=== PATIENT | male | born 1965 | race Hispanic/Latino ===

== ENCOUNTER 2020-12-03 22:48 | Emergency (ER) | payer BC ==
[2020-12-04 01:33] LABS: Urine Blood Trace-intact (Negative); Urine Glucose Negative (Negative); Urine Protein Negative (Negative); Urine Specific Gravity 1.025 (1.005-1.030)
[2020-12-04 01:36] LABS: Absolute Lymphocytes (CBC) 2.8 K/uL (0.7-4.9); Basophils % 0.7 % (0-1.3); Hematocrit 42.4 % (39.6-49.0); MPV 7.6 fL (7.6-11.3); RBC Red Blood Cell Count 4.34 M/uL (4.33-5.43)
[2020-12-04] MEDS ORDERED: NA CHLORIDE 0.9% 1,000 ML ONE (01:38)
[2020-12-04 01:53] LABS: Potassium 4.3 mmol/L (3.5-5.1)
--- NOTE | 2020-12-04 03:08 | ER ---
Nurse's Notes [facility] Name: Alexis Hart Age: 55 yrs Sex: Male : 1965 Arrival Date: 12/03/2020 Time: 22:50 Bed 20 Private MD: Diagnosis: Mildly obstructing 4 mm proximal left ureteral calculus Presentation: 12/03 23:56 Chief complaint: Patient states: left sided flank pain that has been there for a week, em pain came back today at 5 PM, reports N/V and subjective fever, denies pain when urinating. Coronavirus screen: Client denies travel out of the [place] in the last 14 days. Ebola Screen: Patient negative for fever greater than or equal to 101.5 degrees Fahrenheit, and additional compatible Ebola Virus Disease symptoms Patient denies exposure to infectious person. Patient denies travel to an Ebola-affected area in the 21 days before illness onset. No symptoms or risks identified at this time. Initial Sepsis Screen: Does the patient meet any 2 criteria? No. Patient's initial sepsis screen is negative. Does the patient have a suspected source of infection? No. Patient's initial sepsis screen is negative. Risk Assessment: Do you want to hurt yourself or someone else? Patient reports no desire to harm self or others. Onset of symptoms was December 03, 2020. 23:56 Method Of Arrival: Ambulatory em 23:56 Acuity: AMANDA 3 em Historical: - Allergies: 12/04 00:00 No Known Allergies; em - Home Meds: 00:00 lisinopril 5 mg Oral tab 1 tab once daily [Active]; omeprazole 40 mg Oral cpDR 1 cap em once daily [Active]; - PMHx: 00:00 Hypertension; em - PSHx: 00:00 None; em - Immunization history:: Adult Immunizations up to date, Client reports receiving the 1st dose of the Covid vaccine, November 15, 2020. - Social history:: Social history: Smoking status: Patient denies any tobacco usage or history of. Screenin:15 Abuse screen: Denies threats or abuse. Nutritional screening: No deficits noted. ea Tuberculosis screening: No symptoms or risk factors identified. Fall Risk None identified. Assessment: 01:43 General: Appears in no apparent distress. Behavior is calm, cooperative, appropriate ea for age. Pain: Denies pain. Neuro: Level of Consciousness is awake, alert, obeys commands, Oriented to person, place, time. Cardiovascular: Patient's skin is warm and dry. Respiratory: Airway is patent Respiratory effort is even, unlabored, Respiratory pattern is regular, symmetrical. Derm: Skin is pink, warm \T\ dry. 03:02 Reassessment: Patient and/or family updated on plan of care and expected duration. Pain ea level reassessed. Patient is alert, oriented x 3, equal unlabored respirations, skin warm/dry/pink. Awaiting on CT results. 03:23 Reassessment: Patient and/or family updated on plan of care and expected duration. Pain ea level reassessed. Patient is alert, oriented x 3, equal unlabored respirations, skin warm/dry/pink. Discharge instruction given to patient verbalized the understanding of instruction. Pt left ED ambulatory tolerating well. Vital Signs: 12/03 23:56 BP 126 / 96; Pulse 78; Resp 18; Temp 98.0; Pulse Ox 100% on R/A; Weight 97.52 kg; em Height 5 ft. 10 in. (177.80 cm); Pain 0/10; 12/04 03:02 BP 131 / 86; Pulse 74; Resp 18; Pulse Ox 99% ; ea 12/03 23:56 Body Mass Index 30.85 (97.52 kg, 177.80 cm) em ED Course: 12/03 22:50 Patient arrived in ED. am4 23:58 Triage completed. em 12/04 00:00 Arm band placed on. em 01:06 Tyson Morris MD is Attending Physician. pkl 01:15 Latanya Singh, NILO is Primary Nurse. ea 01:16 Patient has correct armband on for positive identification. Placed in gown. Bed in low ea position. Call light in reach. Side rails up X2. 01:44 Inserted saline lock: 20 gauge in right antecubital area, using aseptic technique. ea 01:53 CT Stone Protocol In Process Unspecified. EDMS 03:04 Kaiser Lnaza MD is Referral Physician. pkl 03:22 No provider procedures requiring assistance completed. IV discontinued, intact, ea bleeding controlled, No redness/swelling at site. Pressure dressing applied. Administered Medications: 01:44 Drug: NS 0.9% 1000 ml Route: IV; Rate: 1000 ml; Site: right antecubital; ea 03:22 Drug: [place] (HYDROcodone-acetaminophen) (7.5 mg-325 mg) 1 tabs Route: PO; ea 03:22 Follow up: Response: No adverse reaction ea Outcome: 03:07 Discharge ordered by . matthew 03:23 Discharged to home ambulatory, with family. ea 03:23 Condition: stable 03:23 Discharge instructions given to patient, Instructed on discharge instructions, follow up and referral plans. medication usage, Demonstrated understanding of instructions, follow-up care, medications, Prescriptions given X 2. 03:24 Patient left the ED. ea Signatures: Dispatcher [employer] EDTyson Kim MD MD pkl Munoz, Edgar RN RN Latanya Smith RN RN Estefanía Gay Corrections: (The following items were deleted from the chart) 01:08 04 23:56 Chief complaint: Patient states: flank pain that has been there for a week, em pain came back today at 5 PM, reports N/V and subjective fever, denies pain when urinating em
--- NOTE | 2020-12-04 03:08 | EDPHYS ---
Physician Documentation [facility] Name: Alexis Hart Age: 55 yrs Sex: Male : 1965 Arrival Date: 12/03/2020 Time: 22:50 Bed 20 Private MD: ED Physician Tyson Morris HPI: 12/04 01:16 This 55 yrs old Male presents to ER via Ambulatory with complaints of Flank pkl Pain. 01:16 The patient complains of pain in the left flank. Location: left groin. Onset: The pkl symptoms/episode began/occurred today, 5 hour(s) ago, 1 week(s) ago, and became worse. Associated signs and symptoms: The patient has no apparent associated signs or symptoms. Historical: - Allergies: 00:00 No Known Allergies; em - Home Meds: 00:00 lisinopril 5 mg Oral tab 1 tab once daily [Active]; omeprazole 40 mg Oral cpDR 1 cap em once daily [Active]; - PMHx: 00:00 Hypertension; em - PSHx: 00:00 None; em - Immunization history:: Adult Immunizations up to date, Client reports receiving the 1st dose of the Covid vaccine, November 15, 2020. - Social history:: Social history: Smoking status: Patient denies any tobacco usage or history of. ROS: 01:16 Eyes: Negative for injury, pain, redness, and discharge, ENT: Negative for injury, pkl pain, and discharge, Neck: Negative for injury, pain, and swelling, Cardiovascular: Negative for chest pain, palpitations, and edema, Respiratory: Negative for shortness of breath, cough, wheezing, and pleuritic chest pain, Abdomen/GI: Negative for abdominal pain, nausea, vomiting, diarrhea, and constipation. 01:16 Back: Positive for flank pain, on the left. 01:16 : Negative for urinary symptoms. 01:16 MS/extremity: Negative for acute changes. 01:16 Skin: Negative for rash. 01:16 Neuro: Negative for altered mental status. Exam: 01:16 Head/Face: Normocephalic, atraumatic. Eyes: Pupils equal round and reactive to light, pkl extra-ocular motions intact. Lids and lashes normal. Conjunctiva and sclera are non-icteric and not injected. Cornea within normal limits. Periorbital areas with no swelling, redness, or edema. ENT: Nares patent. No nasal discharge, no septal abnormalities noted. Tympanic membranes are normal and external auditory canals are clear. Oropharynx with no redness, swelling, or masses, exudates, or evidence of obstruction, uvula midline. Mucous membranes moist. Neck: Trachea midline, no thyromegaly or masses palpated, and no cervical lymphadenopathy. Supple, full range of motion without nuchal rigidity, or vertebral point tenderness. No Meningismus. Chest/axilla: Normal chest wall appearance and motion. Nontender with no deformity. No lesions are appreciated. Cardiovascular: Regular rate and rhythm with a normal S1 and S2. No gallops, murmurs, or rubs. Normal PMI, no JVD. No pulse deficits. Respiratory: Lungs have equal breath sounds bilaterally, clear to auscultation and percussion. No rales, rhonchi or wheezes noted. No increased work of breathing, no retractions or nasal flaring. Abdomen/GI: Soft, non-tender, with normal bowel sounds. No distension or tympany. No guarding or rebound. No evidence of tenderness throughout. 01:16 Back: pain, is absent, of the left flank. 01:16 : Exam negative for acute changes. 01:16 Musculoskeletal/extremity: Exam is negative for acute changes. 01:16 Skin: Exam negative for rash. 01:16 Neuro: Orientation: is normal, Mentation: is normal, Cranial nerves: grossly normal, Motor: is normal. Vital Signs: 12/03 23:56 BP 126 / 96; Pulse 78; Resp 18; Temp 98.0; Pulse Ox 100% on R/A; Weight 97.52 kg; em Height 5 ft. 10 in. (177.80 cm); Pain 0/10; 12/04 03:02 BP 131 / 86; Pulse 74; Resp 18; Pulse Ox 99% ; ea 12/03 23:56 Body Mass Index 30.85 (97.52 kg, 177.80 cm) em MDM: 01:06 Patient medically screened. pkl 03:01 Data reviewed: vital signs, nurses notes, lab test result(s), radiologic studies, plain pkl films. ED course: Discussed lab and CT Scan results with patient. Advised lot of fluids. Follow up with Dr. Lanza ( Urologist ) in 2 to 3 days. patient understood instructions. 12/04 01:15 Order name: CBC with Diff; Complete Time: 02:59 pkl 12/04 01:15 Order name: Chem 7; Complete Time: 02:59 pkl 12/04 01:15 Order name: CT Stone Protocol pkl 12/04 01:32 Order name: Urine Dipstick-Ancillary; Complete Time: 02:59 EDMS Administered Medications: 01:44 Drug: NS 0.9% 1000 ml Route: IV; Rate: 1000 ml; Site: right antecubital; ea 03:22 Drug: [place] (HYDROcodone-acetaminophen) (7.5 mg-325 mg) 1 tabs Route: PO; ea 03:22 Follow up: Response: No adverse reaction ea Disposition: 12/04/20 03:07 Discharged to Home. Impression: Mildly obstructing 4 mm proximal left ureteral calculus. - Condition is Stable. - Prescriptions for Ultram 50 mg Oral Tablet - take 1 tablet by ORAL route every 6 hours As needed; 12 tablet. Flomax 0.4 mg Oral Capsule, Sust. Release 24 hr - take 1 capsule by ORAL route once daily 1/2 hour following the same meal each day; 30 capsule. - Medication Reconciliation Form, Thank You Letter, Antibiotic Education, Prescription Opioid Use form. - Follow up: Kaiser Lanza MD; When: 2 - 3 days; Reason: Re-evaluation by your physician. - Problem is new. - Symptoms have improved. Signatures: Dispatcher [employer] EDTyson Kim MD MD pkl Munoz, Edgar, Latanya Chatman RN, RN RN ea Corrections: (The following items were deleted from the chart) 03:24 03:07 12/04/2020 03:07 Discharged to Home. Impression: Mildly obstructing 4 mm proximal ea left ureteral calculus. Condition is Stable. Forms are Medication Reconciliation Form, Thank You Letter, Antibiotic Education, Prescription Opioid Use. Follow up: Kaiser Lanza; When: 2 - 3 days; Reason: Re-evaluation by your physician. Problem is new. Symptoms have improved. pkl
[2020-12-04] MEDS ORDERED: HYDROCODONE/APAP 7.5/325 MG TAB ONE (03:38)
--- NOTE | 2020-12-04 11:45 | RAD REPORT ---
EXAM DESCRIPTION: CT - Stone Protocol - 12/04/2020 2:34 am CLINICAL HISTORY: Left flank pain COMPARISON: None. TECHNIQUE: CT ABDOMEN PELVIS WITHOUT IV CONTRAST on 12/04/2020 1:15 AM CDT This exam was performed according to our departmental dose-optimization program, which includes autom ated exposure control, adjustment of the mA and/or kV according to patient size and/or use of iterati ve reconstruction technique. FINDINGS: Lower lungs are clear. Abdomen: Liver is fatty in attenuation. There is no biliary dilatation. Gallbladder is normally diste nded. The pancreas and spleen are normal in appearance. Adrenal glands are normal. Right kidney conta ins a 1 mm mid to lower pole calculus without hydronephrosis. There is mild left hydronephrosis secon valentin to a 4 mm proximal ureteral calculus. Abdominal aorta is normal in course and caliber without aneurysm. There is no free air. There is no r etroperitoneal adenopathy. Pelvis: There is no bowel obstruction. Urinary bladder is unremarkable. There is no free fluid. Appen salvador is normal. Skeleton: There are no acute osseous findings. No suspicious bony lesions. IMPRESSION: Mildly obstructing 4 mm proximal left ureteral calculus. Electronically signed by: Asaf Meza MD 12/04/2020 2:05 AM CDT Due to temporary technical issues with the PACS/Fluency reporting system, reports are being signed by the in house radiologist without review as a courtesy to ensure prompt reporting. The interpreting r adiologist is fully responsible for the content of the report.
[2020-12-04 18:03] VITALS: TEMP 98
[2020-12-04 18:06] VITALS: BP 131/86; O2SAT 99
== END 2020-12-04 03:24 | disposition home or self-care (01) ==
LOC: ER 22:48
DX: N20.1 Calculus of ureter (principal); I10 Essential (primary) hypertension
CPT/HCPCS: 85025; 80048; 36415; 81003; 76377; 74176; 99284; J7030

== ENCOUNTER 2020-12-30 06:18 | Emergency (ER) | payer BC ==
[2020-12-30 07:00] LABS: Absolute Lymphocytes (CBC) 1.6 K/uL (0.7-4.9); Basophils % 0.3 % (0-1.3); Hematocrit 42.9 % (39.6-49.0); MPV 7.9 fL (7.6-11.3); RBC Red Blood Cell Count 4.43 M/uL (4.33-5.43)
--- NOTE | 2020-12-30 07:04 | RAD REPORT ---
EXAM DESCRIPTION: CT - Stone Protocol - 12/30/2020 6:53 am CLINICAL HISTORY: FLANK PAIN, left side with chills and vomiting, history of kidney stones COMPARISON: Stone Protocol dated 12/04/2020 TECHNIQUE: Axial 3 mm thick images were obtained without oral or IV contrast. The [id number] span s the entirety of the system including uppermost abdomen and lung bases. All CT scans are performed using dose optimization technique as appropriate and may include automated exposure control or mA/KV adjustment according to patient size. FINDINGS: Moderate dilatation of the left renal pelvis and proximal most ureter noted secondary to a 7 x 5 mm stone. When viewed from a KUB projection, the stone superimposes on the left lateral margin L4 body. There is stranding in the perinephric fat and along the course of the left ureter to the le nel of the pelvic inlet. No additional renal or ureteral calculi seen. No right-sided hydronephrosis or acute finding. No suspicious renal masses. Isodense masses and pyelonephritis are not excluded on a stone protocol CT scan. No significant adrenal finding. No urinary bladder suspicious finding. Imaged portions of the liver, spleen and pancreas show no suspicious findings on non-contrast imaging . The liver does show diffuse fatty infiltration. No gallbladder or biliary tree abnormality. No suspicious bowel findings. No hernia, mass or bulky lymphadenopathy noted. No free air, free fluid or inflammatory stranding. No significant bony abnormality. IMPRESSION: Moderate dilatation of the left renal pelvis and proximal left ureter secondary to a 7 x 5 mm obstructing calculus. When viewed on a KUB projection, the stone is superimposed on the left la teral margin L4 body. Left perinephric stranding and stranding adjacent to the proximal left ureter noted. Isodense masses and pyelonephritis are not excluded on stone protocol technique. Remainder the study is without acute or significant finding. Nonacute findings detailed in the body o f the report.
[2020-12-30 07:09] LABS: Potassium 3.8 mmol/L (3.5-5.1)
[2020-12-30 07:15] LABS: Urine Blood Trace-intact (Negative); Urine Glucose Negative (Negative); Urine Protein Negative (Negative); Urine Specific Gravity >=1.030 (1.005-1.030)
[2020-12-30] MEDS ORDERED: MORPHINE 4 MG/ML SYR ONE (07:26)
[2020-12-30] MEDS ORDERED: ONDANSETRON 4 MG/2 ML VIAL ONE (07:26)
[2020-12-30 07:31] LABS: Urine Bacteria NONE SEEN /HPF (NONE SEEN)
[2020-12-30] MEDS ORDERED: TAMSULOSIN 0.4 MG SR CAP ONE (07:40)
[2020-12-30] MEDS ORDERED: MAGNESIUM SULFATE 1 gm IVPB 1 GM/100 ML BAG IV ONE (07:41)
[2020-12-30 08:01] LABS: Urine Blood 3+ (Negative); Urine Glucose Negative (Negative); Urine Protein Negative (Negative); Urine pH 5.5 (5.0-7.0)
--- NOTE | 2020-12-30 09:22 | EDPHYS ---
Physician Documentation [facility] Name: Alexis Hart Age: 55 yrs Sex: Male : 1965 Arrival Date: 12/30/2020 Time: 06:22 Bed 15 Private MD: [place] Physician Mono Orosco HPI: 12/30 07:03 This 55 yrs old Male presents to ER via Ambulatory with complaints of Possible rn Kidney Stone. 07:03 The patient complains of pain in the left mid back. The pain radiates to the abdomen. rn Onset: The symptoms/episode began/occurred yesterday. Modifying factors: The symptoms are alleviated by nothing. the symptoms are aggravated by nothing. Associated signs and symptoms: Pertinent positives: nausea, Pertinent negatives: fever. Severity of pain: At its worst the pain was moderate in the emergency department the pain is unchanged. The patient has experienced a previous episode. The patient has not recently seen a physician. Historical: - Allergies: 06:39 No Known Allergies; bb - Home Meds: 06:39 lisinopril 5 mg Oral tab 1 tab once daily [Active]; omeprazole 40 mg Oral cpDR 1 cap bb once daily [Active]; - PMHx: 06:39 Hypertension; Kidney stones; bb - Immunization history:: Adult Immunizations up to date, Client reports receiving the 2nd dose of the Covid vaccine. - Social history:: Smoking status: unknown. - Family history:: not pertinent. - Hospitalizations: : No recent hospitalization is reported. ROS: 07:03 Constitutional: Negative for fever, chills, and weight loss, Eyes: Negative for injury, rn pain, redness, and discharge, Neck: Negative for injury, pain, and swelling, Cardiovascular: Negative for chest pain, palpitations, and edema, Respiratory: Negative for shortness of breath, cough, wheezing, and pleuritic chest pain, Abdomen/GI: Negative for abdominal pain, nausea, vomiting, diarrhea, and constipation, Back: + left flank pain : Negative for injury, bleeding, discharge, and swelling, MS/Extremity: Negative for injury and deformity, Skin: Negative for injury, rash, and discoloration, Neuro: Negative for headache, weakness, numbness, tingling, and seizure. Exam: 07:03 Constitutional: This is a well developed, well nourished patient who is awake, alert, rn and in no acute distress. Head/Face: Normocephalic, atraumatic. Cardiovascular: Regular rate and rhythm. No pulse deficits. Respiratory: No increased work of breathing, no retractions or nasal flaring. Abdomen/GI: Soft, non-tender Back: No spinal tenderness. No costovertebral tenderness. Full range of motion. Skin: Warm, dry MS/ Extremity: Pulses equal, no cyanosis. Neuro: Awake and alert, GCS 15 Vital Signs: 06:36 BP 151 / 90; Pulse 81; Resp 16 S; Temp 98.9(O); Pulse Ox 97% on R/A; Weight 104.33 kg bb (R); Height 5 ft. 8 in. (172.72 cm) (R); Pain 01/05; 09:00 BP 143 / 69; Pulse 80; Resp 18; Pulse Ox 100% on R/A; Pain /10; em 06:36 Body Mass Index 34.97 (104.33 kg, 172.72 cm) bb MDM: 06:26 Patient medically screened. rn 07:32 ED course: Pain markedly improved from 01/05 to 09/07. . rn 08:09 Patient medically screened. [facility] 09:19 Differential diagnosis: nephrolithiasis, UTI. Data reviewed: vital signs, nurses notes, [facility] lab test result(s), radiologic studies, CT scan. Data interpreted: quality assurance monitor final: rate is 80 beats/min, rhythm is regular, Pulse oximetry: on room air is 100 %. Test interpretation: by ED physician or midlevel provider: plain radiologic studies. Counseling: I had a detailed discussion with the patient and/or guardian regarding: the historical points, exam findings, and any diagnostic results supporting the discharge/admit diagnosis, lab results, radiology results. 12/30 06:36 Order name: Basic Metabolic Panel rn 12/30 06:36 Order name: CBC with Diff rn 12/30 06:36 Order name: Urine Culture rn 12/30 06:36 Order name: Urine Microscopic Only; Complete Time: 08:10 rn 12/30 06:37 Order name: Basic Metabolic Panel; Complete Time: 08:10 EDAR 12/30 06:37 Order name: CBC with Automated Diff; Complete Time: 07:07 EDAR 12/30 06:25 Order name: CT Stone Protocol; Complete Time: 07:07 rn 05/04 06:36 Order name: IV Saline Lock; Complete Time: 06:55 rn 12/30 07:15 Order name: Urine Dipstick-Ancillary; Complete Time: 08:10 EDMS 12/30 08:01 Order name: Urine Dipstick-Ancillary; Complete Time: 08:10 EDMS 12/30 06:36 Order name: Labs collected and sent; Complete Time: 06:55 rn 12/30 06:36 Order name: Urine Dipstick-Ancillary (obtain specimen); Complete Time: 07:17 rn Administered Medications: 07:10 Drug: Zofran (Ondansetron) 4 mg Route: IVP; Site: left antecubital; em 07:46 Follow up: Response: No adverse reaction em 07:12 Drug: morphine 4 mg Route: IVP; Site: left antecubital; em 07:46 Follow up: Response: No adverse reaction; Marked relief of symptoms; Pain is decreased; em RASS: Alert and Calm (0) 07:27 Drug: Magnesium Sulfate 1 grams Route: IVPB; Infused Over: 1 hrs; Site: left em antecubital; 07:27 Drug: Flomax (tamsulosin) 0.4 mg Route: PO; em 07:47 Follow up: Response: No adverse reaction em Disposition: 12/30/20 09:22 Discharged to Home. Impression: Hydronephrosis with renal and ureteral calculous obstruction. - Condition is Stable. - Discharge Instructions: Kidney Stones, Kidney Stones, [id number], Hydronephrosis. - Prescriptions for Tylenol- Codeine #3 300-30 mg Oral Tablet - take 2 tablet by ORAL route every 4-6 hours As needed; 30 tablet. Zofran 4 mg Oral Tablet - take 1 tablet by ORAL route every 12 hours As needed; 20 tablet. Flomax 0.4 mg Oral Capsule, Sust. Release 24 hr - take 1 capsule by ORAL route once daily 1/2 hour following the same meal each day; 30 capsule. Cipro 500 mg Oral Tablet - take 1 tablet by ORAL route every 12 hours for 7 days; 14 tablet. ketorolac 10 mg Oral tablet - take 1 tablet by ORAL route every 6 hours not to exceed 40 mg in 24hrs; 15 tablet. - Medication Reconciliation Form, Thank You Letter, Antibiotic Education, Prescription Opioid Use, Work release form form. - Follow up: Private Physician; When: 2 - 3 days; Reason: Recheck today's complaints, Continuance of care, Re-evaluation by your physician. Follow up: Kaiser Lanza MD; When: 2 - 3 days; Reason: Recheck today's complaints, Continuance of care, Re-evaluation by your physician. - Problem is new. - Symptoms have improved. Signatures: Dispatcher [employer] EDMono Klein MD MD cha Munoz, Edgar, RN RN em Parvin Marinelli RN RN bb Nieto, Roman, MD MD reclamation furnace operator: (The following items were deleted from the chart) 09:39 09:22 12/30/2020 09:22 Discharged to Home. Impression: Hydronephrosis with renal and em ureteral calculous obstruction. Condition is Stable. Forms are Medication Reconciliation Form, Thank You Letter, Antibiotic Education, Prescription Opioid Use. Follow up: Private Physician; When: 2 - 3 days; Reason: Recheck today's complaints, Continuance of care, Re-evaluation by your physician. Follow up: Kaiser Lanza; When: 2 - 3 days; Reason: Recheck today's complaints, Continuance of care, Re-evaluation by your physician. Problem is new. Symptoms have improved. geovanni
--- NOTE | 2020-12-30 09:22 | ER ---
Nurse's Notes [facility] Name: Alexis Hart Age: 55 yrs Sex: Male : 1965 Arrival Date: 12/30/2020 Time: 06:22 Bed 15 Private MD: Diagnosis: Hydronephrosis with renal and ureteral calculous obstruction Presentation: 12/30 06:36 Chief complaint: Patient states: he has history of kidney stones and is having similar bb symptoms starting last night with left flank pain, chills, vomiting. Coronavirus screen: At this time, the client does not indicate any symptoms associated with coronavirus-19. Ebola Screen: No symptoms or risks identified at this time. Initial Sepsis Screen: Does the patient meet any 2 criteria? No. Patient's initial sepsis screen is negative. Does the patient have a suspected source of infection? No. Patient's initial sepsis screen is negative. Risk Assessment: Do you want to hurt yourself or someone else? Patient reports no desire to harm self or others. Onset of symptoms was December 29, 2020. 06:36 Method Of Arrival: Ambulatory bb 06:36 Acuity: AMANDA 3 bb Historical: - Allergies: 06:39 No Known Allergies; bb - Home Meds: 06:39 lisinopril 5 mg Oral tab 1 tab once daily [Active]; omeprazole 40 mg Oral cpDR 1 cap bb once daily [Active]; - PMHx: 06:39 Hypertension; Kidney stones; bb - Immunization history:: Adult Immunizations up to date, Client reports receiving the 2nd dose of the Covid vaccine. - Social history:: Smoking status: unknown. - Family history:: not pertinent. - Hospitalizations: : No recent hospitalization is reported. Screenin:08 Abuse screen: Denies threats or abuse. Nutritional screening: No deficits noted. jv1 Tuberculosis screening: No symptoms or risk factors identified. Fall Risk None identified. Assessment: 06:45 General: Appears in no apparent distress. comfortable, well groomed, well developed, jv1 Behavior is calm, cooperative, appropriate for age. Pain: Complains of pain in left flank Pain radiates to abdomen Pain currently is 8 out of 10 on a pain scale. Quality of pain is described as aching. Neuro:. Cardiovascular: Denies chest pain, Heart tones S1 S2. Respiratory: Airway is patent Respiratory effort is even, unlabored. GI: Abdomen is round non-distended, Bowel sounds present X 4 quads. Abd is soft Abdomen is tender to palpation in left lower quadrant. : No signs and/or symptoms were reported regarding the genitourinary system. EENT: No signs and/or symptoms were reported regarding the EENT system. Derm: No signs and/or symptoms reported regarding the dermatologic system. Musculoskeletal: No signs and/or symptoms reported regarding the musculoskeletal system. 07:46 Reassessment: Patient appears in no apparent distress at this time. Patient and/or em family updated on plan of care and expected duration. Pain level reassessed. Patient is alert, oriented x 3, equal unlabored respirations, skin warm/dry/pink. rates pain 1/10 Patient states feeling better. 09:00 Reassessment: Patient appears in no apparent distress at this time. Patient and/or em family updated on plan of care and expected duration. Pain level reassessed. Patient is alert, oriented x 3, equal unlabored respirations, skin warm/dry/pink. Vital Signs: 06:36 BP 151 / 90; Pulse 81; Resp 16 S; Temp 98.9(O); Pulse Ox 97% on R/A; Weight 104.33 kg bb (R); Height 5 ft. 8 in. (172.72 cm) (R); Pain 5/10; 09:00 BP 143 / 69; Pulse 80; Resp 18; Pulse Ox 100% on R/A; Pain 1/10; em 06:36 Body Mass Index 34.97 (104.33 kg, 172.72 cm) ED Course: 06:22 Patient arrived in ED. bp1 06:26 Raul Mendoza MD is Attending Physician. rn 06:39 Triage completed. bb 06:39 Arm band placed on Patient placed in an exam room, on a stretcher, on pulse oximetry. bb Family accompanied patient. 06:52 CT Stone Protocol In Process Unspecified. EDMS 07:08 Patient has correct armband on for positive identification. Bed in low position. Side jv1 rails up X 1. 07:16 Cordell Wheeler, NILO is Primary Nurse. em 08:08 Attending Physician role handed off by Raul Mendoza MD geovanni 08:08 Mono Orosco MD is Attending Physician. geovanni 09:21 Kaiser Lanza MD is Referral Physician. [facility] 09:34 No provider procedures requiring assistance completed. IV discontinued, intact, em bleeding controlled, No redness/swelling at site. Pressure dressing applied. Administered Medications: 07:10 Drug: Zofran (Ondansetron) 4 mg Route: IVP; Site: left antecubital; em 07:46 Follow up: Response: No adverse reaction em 07:12 Drug: morphine 4 mg Route: IVP; Site: left antecubital; em 07:46 Follow up: Response: No adverse reaction; Marked relief of symptoms; Pain is decreased; em RASS: Alert and Calm (0) 07:27 Drug: Magnesium Sulfate 1 grams Route: IVPB; Infused Over: 1 hrs; Site: left em antecubital; 07:27 Drug: Flomax (tamsulosin) 0.4 mg Route: PO; em 07:47 Follow up: Response: No adverse reaction em Outcome: 09:22 Discharge ordered by . [facility] 09:34 Discharged to home ambulatory, with family. em 09:34 Condition: good 09:34 Discharge instructions given to patient, family, Instructed on discharge instructions, follow up and referral plans. Demonstrated understanding of instructions, follow-up care, medications, Prescriptions given X 5 09:39 Patient left the ED. em Signatures: Dispatcher [employer] Mono Salas MD MD cha Munoz, Edgar, RN RN Parvin Rosario RN RN Raul Ramon MD MD rn Vicente, Joyce, RN RN jMable Li [facility]
[2020-12-30 09:45] VITALS: TEMP 98.9
[2020-12-30 09:47] VITALS: BP 143/69; O2SAT 100
== END 2020-12-30 09:39 | disposition home or self-care (01) ==
LOC: ER 06:18
DX: N13.2 Hydronephrosis with renal and ureteral calculous obstruction (principal); Z87.442 Personal history of urinary calculi; I10 Essential (primary) hypertension
CPT/HCPCS: 87088; 85025; 87086; 80048; 36415; 76377; 74176; J3475; J2405; 81003; 81015; 96374; 96375; 99284

== ENCOUNTER 2021-02-03 06:22 | Day surgery (SDC) | payer BC ==
--- NOTE | 2021-01-28 08:36 | RAD REPORT ---
EXAM DESCRIPTION: RAD - Chest Pa And Lat (2 Views) - 01/28/2021 8:30 am CLINICAL HISTORY: preop Chest pain. COMPARISON: Chest Pa And Lat (2 Views) dated 10/10/2018; CHEST SINGLE VIEW dated 07/28/2013 FINDINGS: Mild elevation of the right hemidiaphragmatic leaflet is seen. The lungs are grossly clear . The heart is normal in size. No displaced fractures.
[2021-01-28 08:40] LABS: Basophils % 0.8 % (0-1.3); Hematocrit 41.9 % (39.6-49.0); Lymphocytes % 46.7 % (15.3-44.8); MPV 7.8 fL (7.6-11.3); RBC Red Blood Cell Count 4.37 M/uL (4.33-5.43)
[2021-01-28 08:55] LABS: Protime INR 0.99
[2021-01-28 09:07] LABS: Blood Morphology Comment NOT SEEN (NOT SEEN); Platelet Estimate ADEQ
[2021-01-28 09:20] LABS: BUN Blood Urea Nitrogen 15 mg/dL (7-18); Bicarbonate 26 mmol/L (21-32); Glucose Level 99 mg/dL (74-106); Potassium 4.3 mmol/L (3.5-5.1); Sodium Level 141 mmol/L (136-145)
--- NOTE | 2021-01-28 11:54 | EKG ---
Test Date: 2021-01-28 Test Time: 07:13:54 Reconciliation Specialist: FLASH MEASUREMENT RESULTS: Intervals: Rate: 73 IA: 126 QRSD: 98 QT: 402 QTc: 442 Sparkman: P: 39 IA: 126 QRS: 24 T: 20 INTERPRETIVE STATEMENTS: Normal sinus rhythm Normal ECG Compared to ECG 10/10/2018 11:34:42 Incomplete right bundle-branch block no longer present Electronically Signed On 01-28-21 11:53:28 CDT by Sylvester Chanel
[2021-02-03] MEDS ORDERED: Ringers Lactate 1,000 ML IV ONE (06:57)
--- NOTE | 2021-02-03 07:20 | RAD REPORT ---
EXAM DESCRIPTION: RAD - Abdomen 1 View (KUB) - 02/03/2021 6:43 am CLINICAL HISTORY: pre-op Obstructing left ureteral calculus COMPARISON: Stone Protocol dated 12/30/2020 FINDINGS: Bowel gas pattern is non-specific. No obstruction, free air or pneumatosis. No suspicious calcifications seen. The obstructing calculus noted on December 30 examination is not identifiable on this study and may have passed or may be radiographically occult. IMPRESSION: Negative KUB examination. Obstructing left ureteral calculus from the December 30 CT study is not identifiable on this examination. S tone may have passed or may be radiographically occult.
[2021-02-03] MEDS ORDERED: MIDAZOLAM HCL 2 MG/2 ML INJ ONE (07:31)
[2021-02-03] MEDS ORDERED: propofoL 200 MG/20 ML VIAL IV ONE (07:31)
[2021-02-03] MEDS ORDERED: FENTANYL CITR 100 MCG/2 ML ONE ×2 (07:31→08:30)
[2021-02-03] MEDS ORDERED: ONDANSETRON 4 MG/2 ML VIAL ONE (07:32)
[2021-02-03] MEDS ORDERED: LIDOCAINE 2% MPF 5 ML VIAL ONE (07:36)
[2021-02-03] MEDS ORDERED: HYDROCODONE/APAP 5/325 MG TAB PO PRN (07:42)
[2021-02-03] MEDS ORDERED: PHENAZOPYRIDINE 100MG TAB PO ONE ×2 (07:42→09:52)
[2021-02-03] MEDS ORDERED: AMPICILLIN SODIUM 2 GM in NA CHLORIDE 0.9% 100 ML IVPB SCH (08:00)
[2021-02-03] MEDS ORDERED: Gentamicin Inj 240 MG in NA CHLORIDE 0.9% 100 ML IV SCH (08:00)
[2021-02-03] MEDS ORDERED: dexAMETHasone 10 MG/ML VIAL ONE (08:04)
[2021-02-03 09:14] VITALS: BP 155/73; TEMP 97.3; O2SAT 99
--- NOTE | 2021-02-03 09:22 | RAD REPORT ---
EXAM DESCRIPTION: RAD - Urography Retrograde - 02/03/2021 8:56 am FINDINGS: There were 20 portable KUB images acquired during a fluoroscopic assisted placement of a l eft ureteral stent. No suspicious or unexpected finding. Fluoro time was 18 seconds.
--- NOTE | 2021-02-03 15:56 | OP ---
Surgeon: RENE SHELLEY Preoperative Diagnosis: Left ureterolithiasis, 5 mm. Postoperative Diagnoses: 1. Left ureterolithiasis. 2. Urethral stricture disease. Principle Procedures: 1. Cystourethroscopy. 2. Left retrograde pyelography. 3. Left distal ureteroscopy. 4. Left ureteral stent placement. 5. Placement of urethral Guerra catheter over a wire. Date of Procedure 02/03/21 Indication For Procedure: Mr. Hart presented to the Urology Clinic with obstructing 5 mm left proximal ureterolithiasis. Despite a period of time of observation, he was unable to pass the stone and thus presents for definitive management. He was straining his urine, but yet did not collect a calculus even though his pain had abated within the last few days. No stone was visible radiographically on KUB. Procedure In Detail: The patient was consented in the preoperative holding area before being transferred to the operative suite where general anesthesia was induced. He was given ampicillin 2 g and gentamicin 240 mg IV antimicrobial prophylaxis. Pneumo boots were provided for DVT prophylaxis. He was placed in the lithotomy position, padded, and secured to the table appropriately. His genitalia were prepped using Hibiclens and draped in standard fashion. Case was begun attempting to use a 22-Israeli rigid cystoscope, which did enter the meatus, but in the mid pendulous urethra, an area of strictured narrowing prohibited further passage of the 22-Israeli scope. As a result, I switched to a 19-Israeli rigid scope and was able to traverse that area of strictured narrowing and into the bladder with minimal difficulty. Once within the bladder, the bladder was briefly surveyed and no mucosal lesions, foreign bodies or stones were evident. The ureteral orifices were orthotopic in location and the left ureteral orifice was cannulated using the tip of a 5-Israeli ureteral access catheter. A retrograde pyelogram was then performed. Left retrograde pyelography: Using a 70:30 mixture of Omnipaque and saline, contrast was injected via the lumen of the 5-Israeli ureteral access catheter and did propagate up what appeared to be a nondilated collecting system with no specific areas of obstruction visible and enter a nondilated renal pelvis with sharp calices and no evidence of pelviectasis. Because there were areas of ureteral dilation followed by narrowing which could have simply been peristalsis and no stone was visible, I elected to perform ureteroscopy to look for a partially obstructing calculus. As such, I passed the Sensor wire via the 5-Israeli ureteral access catheter and observed a coil within the upper pole of the kidney. I then passed over the Sensor wire a dual-lumen catheter after removing the 5-Israeli ureteral access catheter. This was done to dilate the ureteral orifice and distal ureter. I then removed the dual-lumen catheter and used semi-rigid ureteroscopy to traverse the urethra and into the left ureter where I was able to navigate into the mid distal ureter before ureteral spasm prohibited further direct vision ureteroscopic passage with the semi-rigid scope. As a result, I passed a Yaphie guidewire alongside the indwelling Sensor wire into the upper pole calyx and attempted to pass a flexible ureteroscope over that wire. Unfortunately, a similar degree of spasm prohibited passage of the flexible ureteroscope beyond the mid distal ureter and so further attempts at ureteroscopy were aborted. The mid and proximal ureter were not visualized as well as the renal pelvis and calices, so I was unable to verify the absence of any calculi today. As such, I removed the ureteroscope leaving the indwelling safety wire in place and back- loaded the 19-Israeli cystoscope over the safety wire in order to place a 6- Israeli by 26 cm double-J left ureteral stent. This was done with ease and a coil was observed fluoroscopically within the upper pole with one cystoscopically within the bladder. I then placed a wire via the cystoscope into the bladder and passed an 18-Israeli Councill tip catheter over the wire into the bladder to allow stabilization and dilation of the urethral stricture disease encounter. The patient was then taken out of the lithotomy position, awakened from general anesthesia before being transferred to a stretcher, and then to the recovery room in good condition. Complications: None. Discharge Disposition: I would like for him to keep the urethral Guerra catheter for 3-5 days and undergo a voiding trial in the office, no sooner than Tuesday but preferably Tuesday. I sent a prescription for Bactrim Double Strength tablets for 7 days, so that he will continue to take the antibiotic until at least 24 hours after the catheter is removed. Followup will be required for the completion operative left ureteroscopy with laser lithotripsy and stent exchange within the coming weeks. JOSSIE/ELAINEL Voice ID: [id number] Report ID: [id number] MTDD
== END 2021-02-03 10:15 | disposition home or self-care (01) ==
LOC: OR 06:22
PROVIDERS: ATTEND Urology
PROC: 0T778DZ Dilation of Left Ureter with Intraluminal Device, Via Natural or Artificial Opening Endoscopic (ICD-10-PCS; principal; 2021-02-03 07:30)
DX: N20.1 Calculus of ureter (principal); I10 Essential (primary) hypertension; K21.9 Gastro-esophageal reflux disease without esophagitis
CPT/HCPCS: 52332; 93005; 87088; 85025; 87086; 80048; 36415; 85610; 85730; 74018; 71046; 74420; J2704; J1580; J2250; J3010 ×2; J1100; J7120; J2405; J0290

== ENCOUNTER 2021-02-23 13:14 | Emergency (ER) | payer BC ==
[2021-02-23 14:23] LABS: Urine Blood 2+ (Negative); Urine Glucose Negative (Negative); Urine Protein 3+ (Negative); Urine Specific Gravity >=1.030 (1.005-1.030)
[2021-02-23 15:07] LABS: Absolute Lymphocytes (CBC) 2.2 K/uL (0.7-4.9); Basophils % 0.7 % (0-1.3); Hematocrit 41.3 % (39.6-49.0); Lymphocytes % 27.7 % (15.3-44.8); MPV 7.2 fL (7.6-11.3); RBC Red Blood Cell Count 4.27 M/uL (4.33-5.43)
[2021-02-23 15:18] LABS: Urine Bacteria <20 /HPF (NONE SEEN); Urine Mucus 1+ /HPF (NONE SEEN)
[2021-02-23 15:24] LABS: Potassium 3.8 mmol/L (3.5-5.1)
--- NOTE | 2021-02-23 15:32 | RAD REPORT ---
EXAM DESCRIPTION: CT - Stone Protocol - 02/23/2021 3:00 pm CLINICAL HISTORY: recent stent, suprapubic pain COMPARISON: Stone Protocol dated 12/30/2020 TECHNIQUE: Axial 3 mm thick images were obtained without oral or IV contrast. The [id number] span s the entirety of the system including uppermost abdomen and lung bases. All CT scans are performed using dose optimization technique as appropriate and may include automated exposure control or mA/KV adjustment according to patient size. FINDINGS: Double pigtail stent is in place in the left collecting system. Proximal pigtail is in the upper left kidney. There is no left-sided hydronephrosis. There is edema and stranding in the fat ad jacent to the ureter along its entire course. A 4 millimeter stone or stone fragment is seen adjacent to the stent in the mid left ureter. This is a distal migration of a few cm compared to the December 30 udy. No other stone or stone fragment seen. No obstructing or nonobstructing stone or stone fragment seen in the left kidney or bladder. No suspicious renal masses. Isodense masses and pyelonephritis ar e not excluded on a stone protocol CT scan. No significant adrenal finding. No suspicious finding in the mostly contracted bladder. There is a small 2 millimeter nonobstructing calyx calcification on th e right. Diffuse fatty infiltration of the liver with no focal liver lesion. Gallbladder and biliary tree are unremarkable. Pancreas and spleen show no suspicious findings. No suspicious bowel findings. No suspicion for appendicitis. No hernia, mass or bulky lymphadenopathy noted. No free air, free fluid or inflammatory stranding. No significant bony abnormality. IMPRESSION: Well-positioned double pigtail stent in the left collecting system. A 4 mm stone or ston e fragment is present in the mid ureter having migrated distally since the December 30 study. Stranding or edema are present along the entire length of the ureter with no hematoma or mass. Remainder of the study shows no significant or suspicious finding that is new from December 30 imaging. Isodense masses and pyelonephritis are not excluded on stone protocol technique.
--- NOTE | 2021-02-23 15:38 | EDPHYS ---
Physician Documentation [facility] Name: Alexis Hart Age: 55 yrs Sex: Male : 1965 Arrival Date: 02/23/2021 Time: 13:18 Bed 25 Private MD: Milton Holland H ED Physician Raul Mendoza HPI: 02/23 14:58 This 55 yrs old Male presents to ER via Ambulatory with complaints of Urinary rn Problem. 14:58 The patient presents with urinary symptoms, dysuria. Onset: The symptoms/episode rn began/occurred 1 week(s) ago. Modifying factors: The symptoms are alleviated by nothing, the symptoms are aggravated by urinating. Associated signs and symptoms: Pertinent positives: dysuria, Pertinent negatives: fever, hematuria, nausea, vomiting. Severity of symptoms: At their worst the symptoms were moderate, in the emergency department the symptoms are unchanged. The patient has experienced similar episodes in the past. The patient has been recently seen by a physician:. Reports dysuria and pressure of bladder when standing, had recent kidney stone and ureteral stent placed for that a couple of weeks ago, sifuentes catheter removed last week, seen by urology and prescribed cefdinir and oxybutynin for UTI and spasm. Doesn't feel like passing another kidney stone.. Historical: - Allergies: 13:34 No Known Allergies; jd3 - Home Meds: 13:34 lisinopril 5 mg Oral tab 1 tab once daily [Active]; omeprazole 40 mg Oral cpDR 1 cap jd3 once daily [Active]; - PMHx: 13:34 Hypertension; Kidney stones; jd3 - PSHx: 13:34 Kidney stents; skin biopsey; jd3 - Immunization history:: Adult Immunizations up to date, Client reports receiving the 2nd dose of the Covid vaccine. - Social history:: Smoking status: Patient denies any tobacco usage or history of. - Family history:: not pertinent. - Hospitalizations: : No recent hospitalization is reported. ROS: 14:58 Constitutional: Negative for fever, chills, and weight loss, Eyes: Negative for injury, rn pain, redness, and discharge, Neck: Negative for injury, pain, and swelling, Cardiovascular: Negative for chest pain, palpitations, and edema, Respiratory: Negative for shortness of breath, cough, wheezing, and pleuritic chest pain, Abdomen/GI: Negative for abdominal pain, nausea, vomiting, diarrhea, and constipation, Back: Negative for injury and pain, : Negative for injury, bleeding, discharge, and swelling, MS/Extremity: Negative for injury and deformity, Skin: Negative for injury, rash, and discoloration, Neuro: Negative for headache, weakness, numbness, tingling, and seizure. Exam: 14:58 Constitutional: This is a well developed, well nourished patient who is awake, alert, rn and in no acute distress. Head/Face: Normocephalic, atraumatic. Cardiovascular: Regular rate and rhythm. No pulse deficits. Respiratory: No increased work of breathing, no retractions or nasal flaring. Abdomen/GI: soft, mild suprapubic tenderness Back: No spinal tenderness. No costovertebral tenderness. Full range of motion. Skin: Warm, dry MS/ Extremity: Pulses equal, no cyanosis. Neuro: Awake and alert, GCS 15 Vital Signs: 13:34 BP 153 / 84; Pulse 90; Resp 17 S; Temp 97.8(TE); Pulse Ox 98% on R/A; Weight 104.33 kg jd3 (R); Height 5 ft. 8 in. (172.72 cm) (R); Pain 7/10; 14:55 BP 152 / 75; Pulse 78; Resp 16; Pulse Ox 98% ; vg1 15:47 BP 169 / 84; Pulse 78; Resp 16; Pulse Ox 97% on R/A; vg1 13:34 Body Mass Index 34.97 (104.33 kg, 172.72 cm) jd3 MDM: 14:06 Patient medically screened. rn 15:35 Differential diagnosis: nonspecific abdominal pain, UTI, urethritis. Data reviewed: rn vital signs, nurses notes, lab test result(s), radiologic studies, CT scan, and as a result, I will discharge patient. Counseling: I had a detailed discussion with the patient and/or guardian regarding: the historical points, exam findings, and any diagnostic results supporting the discharge/admit diagnosis, lab results, radiology results, the need for outpatient follow up, to return to the emergency department if symptoms worsen or persist or if there are any questions or concerns that arise at home. Response to treatment: the patient's symptoms have mildly improved after treatment, and as a result, I will discharge patient. Special discussion: I discussed with the patient/guardian in detail that at this point there is no indication for admission to the hospital. It is understood, however, that if the symptoms persist or worsen the patient needs to return immediately for re-evaluation. ED course: No acute findings on CT, stone moving distally, is 4mm, already has stent in place so should be able to pass, will dc home with cipro given just finished cefdinir and still symptomatic, could be ureteral irritation by stent, will f/u with urology. . 02/23 14:18 Order name: Urine Microscopic Only; Complete Time: 15:34 rn 02/23 14:18 Order name: Urine Culture rn 02/23 14:23 Order name: Urine Dipstick-Ancillary; Complete Time: 15:34 EDNC 02/23 14:25 Order name: CBC with Diff; Complete Time: 15:34 rn 02/23 14:25 Order name: Basic Metabolic Panel; Complete Time: 15:34 rn 02/23 14:18 Order name: Urine Dipstick-Ancillary (obtain specimen); Complete Time: 14:40 rn 02/23 14:25 Order name: IV Start; Complete Time: 14:51 rn 02/23 14:25 Order name: CT Stone Protocol; Complete Time: 15:34 rn Administered Medications: 15:46 Drug: Cipro (ciprofloxacin) 400 mg Volume: 200 ml; Route: IVPB; Infused Over: 60 mins; vg1 Site: left antecubital; 17:03 Follow up: IV Status: Completed infusion ss Disposition: 02/23/21 15:38 Discharged to Home. Impression: UTI/ Urinary tract infection, site not specified, Ureterolithiasis. - Condition is Stable. - Discharge Instructions: Dysuria, Urinary Tract Infection, Adult. - Prescriptions for Cipro 500 mg Oral Tablet - take 1 tablet by ORAL route every 12 hours for 10 days; 20 tablet. - Medication Reconciliation Form, Thank You Letter, Antibiotic Education, Prescription Opioid Use, Work release form form. - Follow up: Kaiser Lanza MD; When: As needed; Reason: Recheck today's complaints, Re-evaluation by your physician. - Problem is new. - Symptoms have improved. Signatures: Dispatcher [employer] [facility] Raul Mendoza MD MD rn Smirch, Shelby, RN RN ss Davies Rick, RN RN jd3 Merle Strickland, RN RN vg1 Corrections: (The following items were deleted from the chart) 14:19 14:18 Urine Culture+[id number].LAB.BRZ ordered. EDNC EDMS 15:02 14:58 Constitutional: This is a well developed, well nourished patient who is awake, rn alert, and in no acute distress. Head/Face: Normocephalic, atraumatic. Cardiovascular: Regular rate and rhythm. No pulse deficits. Respiratory: No increased work of breathing, no retractions or nasal flaring. Abdomen/GI: soft, mild suprapubic tenderness Skin: Warm, dry MS/ Extremity: Pulses equal, no cyanosis. Neuro: Awake and alert, GCS 15 rn 17:03 15:38 02/23/2021 15:38 Discharged to Home. Impression: Urinary tract infection, site ss not specified; Ureterolithiasis. Condition is Stable. Forms are Medication Reconciliation Form, Thank You Letter, Antibiotic Education, Prescription Opioid Use. Follow up: Kaiser Lanza; When: As needed; Reason: Recheck today's complaints, Re-evaluation by your physician. Problem is new. Symptoms have improved. rn
--- NOTE | 2021-02-23 15:38 | ER ---
Nurse's Notes [facility] Name: Alexis Hart Age: 55 yrs Sex: Male : 1965 Arrival Date: 02/23/2021 Time: 13:18 Bed 25 Private MD: Milton Holland H Diagnosis: UTI/ Urinary tract infection, site not specified;Ureterolithiasis Presentation: 02/23 13:31 Chief complaint: Patient states: "I have an urine infection. I have had a surgery with jd3 Dr. Lanza for kidney stents and I am having symptoms of the urinary infection. Dr. Lanza and his nurse won't be back in the office till next week.". Coronavirus screen: At this time, the client does not indicate any symptoms associated with coronavirus-19. Ebola Screen: Patient negative for fever greater than or equal to 101.5 degrees Fahrenheit, and additional compatible Ebola Virus Disease symptoms. Initial Sepsis Screen: Does the patient meet any 2 criteria? No. Patient's initial sepsis screen is negative. Does the patient have a suspected source of infection? No. Patient's initial sepsis screen is negative. Risk Assessment: Do you want to hurt yourself or someone else? Patient reports no desire to harm self or others. Onset of symptoms was February 17, 2021. 13:31 Method Of Arrival: Ambulatory jd3 13:31 Acuity: AMANDA 3 jd3 Historical: - Allergies: 13:34 No Known Allergies; jd3 - Home Meds: 13:34 lisinopril 5 mg Oral tab 1 tab once daily [Active]; omeprazole 40 mg Oral cpDR 1 cap jd3 once daily [Active]; - PMHx: 13:34 Hypertension; Kidney stones; jd3 - PSHx: 13:34 Kidney stents; skin biopsey; jd3 - Immunization history:: Adult Immunizations up to date, Client reports receiving the 2nd dose of the Covid vaccine. - Social history:: Smoking status: Patient denies any tobacco usage or history of. - Family history:: not pertinent. - Hospitalizations: : No recent hospitalization is reported. Screenin:55 Abuse screen: Denies threats or abuse. Nutritional screening: No deficits noted. vg1 Tuberculosis screening: No symptoms or risk factors identified. Fall Risk No fall in past 12 months (0 pts). No secondary diagnosis (0 pts). IV access (20 points). Ambulatory Aid- None/Bed Rest/Nurse Assist (0 pts). Gait- Normal/Bed Rest/Wheelchair (0 pts) Mental Status- Oriented to own ability (0 pts). Total Hauser Fall Scale indicates No Risk (0-24 pts). Assessment: 14:40 General: Appears in no apparent distress. comfortable, Behavior is calm, cooperative. vg1 Pain: Complains of pain in left lower quadrant and left groin Pain currently is 6 out of 10 on a pain scale. Noted to be grimacing. Neuro: Level of Consciousness is awake, alert, obeys commands, Oriented to person, place, time, situation. Cardiovascular: Patient's skin is warm and dry. Respiratory: Airway is patent Respiratory effort is even, unlabored. GI: Patient currently denies nausea, vomiting. : Reports pain with urination. EENT: No signs and/or symptoms were reported regarding the EENT system. Derm: Skin is intact, is healthy with good turgor. Musculoskeletal: Circulation, motion, and sensation intact. 15:46 Reassessment: Patient appears in no apparent distress at this time. No changes from vg1 previously documented assessment. Patient and/or family updated on plan of care and expected duration. Pain level reassessed. Patient is alert, oriented x 3, equal unlabored respirations, skin warm/dry/pink. Pt has been d/c, currently awaiting for IV antibiotics to complete. Vital Signs: 13:34 BP 153 / 84; Pulse 90; Resp 17 S; Temp 97.8(TE); Pulse Ox 98% on R/A; Weight 104.33 kg jd3 (R); Height 5 ft. 8 in. (172.72 cm) (R); Pain 7/10; 14:55 BP 152 / 75; Pulse 78; Resp 16; Pulse Ox 98% ; vg1 15:47 BP 169 / 84; Pulse 78; Resp 16; Pulse Ox 97% on R/A; vg1 13:34 Body Mass Index 34.97 (104.33 kg, 172.72 cm) jd3 ED Course: 13:18 Patient arrived in ED. mr 13:18 Milton Holland DO is Private Physician. mr 13:33 Triage completed. jd3 13:34 Arm band placed on. jd3 14:06 Raul Mendoza MD is Attending Physician. rn 14:39 Urine Microscopic Only Sent. [facility] 14:40 Merle Strickland, RN is Primary Nurse. [facility] 14:40 Patient has correct armband on for positive identification. Bed in low position. Call [facility] light in reach. Side rails up X 1. Adult w/ patient. Warm blanket given. Pillow given. Pulse ox on. NIBP on. 14:40 Urine Culture Sent. [facility] 14:40 Urine collected: clean catch specimen, cloudy. [facility] 14:51 Initial lab(s) drawn, by wa, sent to lab. Inserted saline lock: 20 gauge in left vg1 antecubital area, using aseptic technique. Blood collected. 15:01 CT Stone Protocol In Process Unspecified. [facility] 15:37 Kaiser Lanza MD is Referral Physician. rn 17:02 No provider procedures requiring assistance completed. IV discontinued, intact, ss bleeding controlled, No redness/swelling at site. Pressure dressing applied. Administered Medications: 15:46 Drug: Cipro (ciprofloxacin) 400 mg Volume: 200 ml; Route: IVPB; Infused Over: 60 mins; vg1 Site: left antecubital; 17:03 Follow up: IV Status: Completed infusion ss Outcome: 15:38 Discharge ordered by . rn 17:02 Discharged to home ambulatory, with family. ss 17:02 Condition: good 17:02 Discharge instructions given to patient, family, Instructed on discharge instructions, follow up and referral plans. medication usage, Demonstrated understanding of instructions, follow-up care, medications, Prescriptions given X 1. 17:03 Patient left the ED. ss Signatures: Dispatcher [employer] [facility] Mónica Cutler Raul Mendoza MD MD rn Smirch, Shelby, RN RN ss Martinez, Maria [facility] Rick Hamilton RN RN jd3 Merle Strickland, RN RN vg1 Corrections: (The following items were deleted from the chart) 13:35 13:31 Chief complaint: Patient states: "I have an urine infection. I have had a surgery jd3 with Dr. Lanza for kidney stents and I am having symptoms of the urinary infection." jd3
[2021-02-23] MEDS ORDERED: CIPROFLOXACIN 400mg IV 400 MG/200 ML BAG IV ONE (16:02)
[2021-02-23 18:12] VITALS: TEMP 97.8
[2021-02-23 18:16] VITALS: BP 169/84; O2SAT 97
== END 2021-02-23 17:03 | disposition home or self-care (01) ==
LOC: ER 13:14
DX: N39.0 Urinary tract infection, site not specified (principal); N20.1 Calculus of ureter; Z87.442 Personal history of urinary calculi; I10 Essential (primary) hypertension
CPT/HCPCS: 87088; 85025; 87086; 80048; 36415; 76377; 74176; J0744; 81003; 81015; 96365; 99284

== ENCOUNTER 2021-04-07 06:17 | Day surgery (SDC) | payer BC ==
[2021-04-07] MEDS ORDERED: Ringers Lactate 1,000 ML IV ONE ×2 (06:50→08:47)
[2021-04-07] MEDS ORDERED: Gentamicin Inj 240 MG in NA CHLORIDE 0.9% 100 ML IVPB ONE (07:00)
[2021-04-07] MEDS ORDERED: AMPICILLIN SODIUM 2 GM in NA CHLORIDE 0.9% 100 ML IVPB ONE (07:00)
[2021-04-07] MEDS ORDERED: CEFAZOLIN/SWI 1gm 0 GM/0 ML SYR ONE (07:12)
[2021-04-07] MEDS ORDERED: FENTANYL CITR 250 MCG/5 ML ONE (07:36)
[2021-04-07] MEDS ORDERED: ROCURONIUM 50 MG/5 ML VIAL IV ONE (07:36)
[2021-04-07] MEDS ORDERED: propofoL 200 MG/20 ML VIAL IV ONE (07:36)
[2021-04-07] MEDS ORDERED: LIDOCAINE 1% MPF 5 ML VIAL ONE (07:36)
[2021-04-07] MEDS ORDERED: MIDAZOLAM HCL 2 MG/2 ML INJ ONE (07:36)
[2021-04-07] MEDS ORDERED: CODEINE 30MG/APAP 300MG TAB PO PRN (07:38)
[2021-04-07] MEDS ORDERED: PHENAZOPYRIDINE 100MG TAB PO ONE ×2 (07:38→09:39)
[2021-04-07] MEDS ORDERED: KETOROLAC 30 MG/ML INJ ONE (08:06)
[2021-04-07] MEDS ORDERED: dexAMETHasone 10 MG/ML VIAL ONE (08:06)
[2021-04-07] MEDS ORDERED: ONDANSETRON 4 MG/2 ML VIAL ONE (08:08)
--- NOTE | 2021-04-07 08:40 | RAD REPORT ---
EXAM DESCRIPTION: RAD - Urethrocystogrphy Retrograde - 04/07/2021 8:18 am FINDINGS: There were 5 portable KUB images obtained during fluoroscopic assisted placement of a left ureteral stent. No suspicious or unexpected findings. Fluoro time was 10 seconds.
[2021-04-07 09:02] VITALS: O2SAT 99
[2021-04-07] MEDS ORDERED: CODEINE 30MG/APAP 300MG TAB ONE (09:39)
[2021-04-07 09:45] VITALS: BP 132/67; TEMP 97.6
--- NOTE | 2021-04-07 17:41 | OP ---
Date of Procedure: 04/07/2021 Surgeon: RENE SHELLEY Preoperative Diagnosis: Left ureterolithiasis, 5 mm. Postoperative Diagnoses: 1.Left ureterolithiasis, 5 mm. 2.Left mid proximal ureteral stricture disease. Principle Procedures: 1.Cystoscopy. 2.Left ureteral stent extraction. 3.Left ureteroscopy with laser lithotripsy. 4.Left ureteral stent placement. Indication For Procedure: Mr. Hart presented to the Urology Clinic after having been stented operati vely from emergency department visit. He needed definitive management of his ureteral calculus seen on CT for which the stent was previously placed. Procedure In Detail: The patient was consented in the preoperative holding area before being transfe rred to operative suite where general anesthesia was induced. He was given gentamicin 240 mg along w ith ampicillin IV antimicrobial prophylaxis. Pneumo boots were provided for DVT prophylaxis. He was placed in the lithotomy position, padded and secured to the table appropriately. His genitalia were prepped using Hibiclens and he was draped in standard fashion. The case was begun using a 22-Kittitian rigid cystoscope to traverse the urethra and into the bladder. The left ureteral stent was noted to emanate from the ureteral orifice and was grasped using an alligator grasper and delivered to the ct atus. Fluoroscopic imagery confirmed the presence of the proximal end of the stent still within the mid ureter. As a result, a Sensor wire was passed via the stent and did coil within the putative upp er pole of the kidney. With the safety wire left and the stent then removed, direct vision ureterosc opy using a semi-rigid ureteroscope was then performed via the urethra and into the left ureter. I w as only able to navigate into the mid distal portion of the left ureter, and thus I was unable to vis ualize the stone. As such, I then passed a Bentson guidewire via the ureteroscope under direct visio n up the ureter and confirmed its coil within the upper pole of the kidney fluoroscopically. Over e indwelling Bentson guidewire, I then passed a flexible ureteroscope once I removed the semi-rigid o ne. The flexible ureteroscope met a point of obstruction in the mid proximal ureter and direct visio n was then performed revealing the presence of the previously observed 5 mm stone. There was some ev idence of mild scar tissue/stricture disease in the left mid proximal ureter where the stone had caus ed the degree of impaction. As a result, I employed a 270 nm laser fiber and power settings of 0.8 j oules and 10 hertz in order to quickly fragment the stone into dust smaller than 1 mm. I then follow ed some of the fragments into the renal pelvis and surveyed the entirety of all of the calices. With no additional calculi observed within the kidney, I then observed the ureter retrograde on the way o ut and when there was no evidence of any additional ureteral injury, ureteroscopy was discontinued. I then back-loaded the cystoscope over the indwelling safety wire and passed a 6-Kittitian by 26 cm doub le-J left ureteral stent with a coil observed fluoroscopically within the kidney and 1 cystoscopicall y within the bladder. His bladder was then decompressed of fluid and urine, and he was taken out of the lithotomy position. He was then awakened from general anesthesia, transferred to a stretcher, an then transferred to the recovery room in good condition. Complications: None. Discharge Disposition: He should maintain the left ureteral stent for a period of about 2 or 3 weeks and then we will remove it cystoscopically within the office. JOSSIE/ANDRES Voice ID: [id number] Report ID: [id number]
== END 2021-04-07 09:50 | disposition home or self-care (01) ==
LOC: OR 06:17
PROVIDERS: ATTEND Urology
PROC: 0T778DZ Dilation of Left Ureter with Intraluminal Device, Via Natural or Artificial Opening Endoscopic (ICD-10-PCS; 2021-04-07)
PROC: 0TF78ZZ Fragmentation in Left Ureter, Via Natural or Artificial Opening Endoscopic (ICD-10-PCS; principal; 2021-04-07 07:30)
DX: N20.0 Calculus of kidney (principal); N20.1 Calculus of ureter; N32.89 Other specified disorders of bladder; Z20.822 Contact with and (suspected) exposure to COVID-19
CPT/HCPCS: 87088; 87086; 74450; 51610; 52356; U0002; J2704; J1580; J2250; J3010; J1100; J7120 ×2; J2405; J0290; J0690